=== PATIENT | male | born 1970 | race Caucasian/White ===

== ENCOUNTER 2021-11-09 22:40 | Inpatient (IN) | payer MEDICAID ==
[~2021-11-09] VITALS: Ht 175.3 cm; Wt 65.8 kg
[2021-11-10] MEDS ORDERED: ONDANSETRON 4MG ODT PO STA (01:28)
[2021-11-10] MEDS ORDERED: IBUPROFEN 600MG TABLET PO ONE (01:30)
[2021-11-10 02:00] LABS: CLARITY URINE CLEAR (CLEAR); COLOR URINE YELLOW (YELLOW); KETONES URINE 2+ (NEGATIVE); LEUKOCYTE ESTERASE URINE NEGATIVE (NEGATIVE); NITRITE URINE NEGATIVE (NEGATIVE); OCCULT BLOOD URINE NEGATIVE (NEGATIVE); PROTEIN URINE TRACE (NEGATIVE); SPECIFIC GRAVITY URINE 1.025 (1.005-1.030)
[2021-11-10 02:18] LABS: CHLORIDE 99 mEq/L (98-107)
[2021-11-10 02:23] LABS: BASOPHILS % 1.3 % (0.0-2.0); EOSINOPHILS % 2.1 % (0.0-5.0); LYMPHOCYTES % 12.3 % (20.0-50.0); MEAN CORPUSCULAR HEMOGLOBIN 18.5 pg (28.0-32.0); MEAN CORPUSCULAR VOLUME 65.1 fL (80.0-94.0); MEAN PLATELET VOLUME 7.6 fl (7.4-10.4); MONOCYTES % 11.5 % (2.0-8.0); NEUTROPHILS % 72.8 % (40.0-76.0); PLATELET 530 x1000/uL (130-400); RED CELL DISTRIBUTION WIDTH 23.5 % (11.6-14.6)
[2021-11-10 02:28] LABS: CREATINE KINASE 239 IU/L (39-308)
[2021-11-10 02:31] LABS: HEMATOCRIT. 20.2 % (42.0-52.0); HEMOGLOBIN. 5.7 g/dL (14.0-18.0)
[2021-11-10 02:32] LABS: PLATELET ESTIMATE INCREASED
[2021-11-10] MEDS ORDERED: PANTOPRAZOLE SODIUM 40 MG/VIAL IV ONE (03:00)
[2021-11-10] MEDS ORDERED: CALAMINE LOTION 120ML TOP ONE (04:30)
[2021-11-10] MEDS ORDERED: PANTOPRAZOLE SODIUM 40 MG/VIAL IV SCH (09:30)
[2021-11-10] MEDS ORDERED: ONDANSETRON HCL 4MG/2ML INJ IV PRN (09:30)
[2021-11-10] MEDS ORDERED: ACETAMINOPHEN 325MG TABLET PO PRN ×2 (09:30)
[2021-11-10] MEDS ORDERED: DIPHENHYDRAMINE 50MG/ML VIAL IV PRN (09:30)
[2021-11-10] MEDS ORDERED: SODIUM CHLORIDE 0.9% 1,000 ML IV SCH (09:30)
[2021-11-10 09:43] LABS: TOTAL IRON BINDING CAPACITY 434 ug/dL (250-450)
[2021-11-10 09:45] VITALS: BP 115/60
[2021-11-10 11:30] VITALS: BP 115/61
[2021-11-10 16:00] VITALS: BP 118/67
[2021-11-10] MEDS: IRON SUCROSE COMPLEX 100 MG/5 ML ML IV SCH (16:53)
[2021-11-10] MEDS: DEXT 5%/0.9% NACL 1,000 ML IV SCH (16:53)
[2021-11-10 19:56] LABS: HEMOGLOBIN 6.7 g/dL (14.0-18.0)
[2021-11-10 20:00] VITALS: BP 123/56
[2021-11-10] MEDS: PANTOPRAZOLE SODIUM 40 MG/VIAL IV SCH (21:41)
[2021-11-10 22:45] VITALS: BP 113/63
[2021-11-10 23:00] VITALS: BP 112/65
[2021-11-11] VITALS (13 sets, daily range): BP systolic 106–122; BP diastolic 53–83
[2021-11-11] MEDS ORDERED: PHENYLEPHRINE/SHK LV/MO/PET RECTAL OINTMENT 57GM PR SCH (01:00)
[2021-11-11] MEDS ORDERED: PHENYLEPH/PRAMOXIN/GLYCR/PET RECTAL CREAM 26GM PR SCH (01:40)
[2021-11-11] MEDS: DEXT 5%/0.9% NACL 1,000 ML IV SCH ×3 (01:52→21:38)
[2021-11-11 02:23] LABS: HEMATOCRIT 23.9 % (42.0-52.0); HEMOGLOBIN 7.3 g/dL (14.0-18.0)
[2021-11-11 07:44] LABS: EOSINOPHILS % 4.4 % (0.0-5.0); HEMATOCRIT. 24.8 % (42.0-52.0); HEMOGLOBIN. 7.7 g/dL (14.0-18.0); LYMPHOCYTES % 12.9 % (20.0-50.0); MEAN CORPUSCULAR HEMOGLOBIN 22.1 pg (28.0-32.0); MEAN PLATELET VOLUME 7.9 fl (7.4-10.4); MONOCYTES % 11.5 % (2.0-8.0); PLATELET 402 x1000/uL (130-400); RED BLOOD CELL COUNT 3.49 mill/uL (4.7-6.1); RED CELL DISTRIBUTION WIDTH 28.5 % (11.6-14.6)
[2021-11-11 07:47] LABS: INR 1.1; PROTHROMBIN TIME 11.3 sec (9.6-11.0)
[2021-11-11 07:56] LABS: CHLORIDE 109 mEq/L (98-107)
[2021-11-11] MEDS ORDERED: LIDOCAINE HCL/EPINEPHRINE 1%-EPI 1:100,000 20 ML VIAL ONE (08:20)
[2021-11-11] MEDS ORDERED: BUPIVACAINE HCL 0.5% (5MG/ML) 50ML ONE (08:21)
[2021-11-11] MEDS ORDERED: POLYMYXIN B SULFATE 500000 UNITS/VIAL ONE (08:35)
[2021-11-11 09:27] LABS: BASOPHILS % 1.2 % (0.0-2.0)
[2021-11-11] MEDS: PANTOPRAZOLE SODIUM 40 MG/VIAL IV SCH ×2 (09:30→21:27)
[2021-11-11] MEDS ORDERED: MIDAZOLAM HCL 2 MG/2 ML VIAL ONE (09:40)
[2021-11-11] MEDS ORDERED: FENTANYL CITRATE/PF 50MCG/ML 2ML VIAL ONE ×2 (09:40→09:49)
[2021-11-11] MEDS ORDERED: PROPOFOL 200MG/20ML VIAL IV ONE (09:43)
[2021-11-11] MEDS ORDERED: PROPOFOL 10MG/ML 100ML 100 ML IV ONE (09:48)
[2021-11-11] MEDS ORDERED: ONDANSETRON HCL 4MG/2ML INJ IV PRN (10:45)
[2021-11-11] MEDS ORDERED: FENTANYL CITRATE/PF 50MCG/ML 2ML VIAL IV PRN (10:45)
[2021-11-11] MEDS ORDERED: NALOXONE HCL 0.4MG/ML VIAL IV PRN (11:00)
[2021-11-11] MEDS ORDERED: POTASSIUM CHLORIDE 20MEQ TABLET SR PO NR (12:45)
[2021-11-11 16:21] LABS: HEMATOCRIT 23.5 % (42.0-52.0)
[2021-11-11] MEDS: IRON SUCROSE COMPLEX 100 MG/5 ML ML IV SCH (16:38)
[2021-11-12 00:51] LABS: HEMATOCRIT 26.5 % (42.0-52.0)
[2021-11-12 01:48] VITALS: BP 113/66
[2021-11-12 04:30] VITALS: BP 114/59
[2021-11-12 07:32] LABS: HEMOGLOBIN. 8.1 g/dL (14.0-18.0); MEAN CORPUSCULAR HEMOGLOBIN 22.9 pg (28.0-32.0); MEAN CORPUSCULAR VOLUME 73.9 fL (80.0-94.0); MEAN PLATELET VOLUME 8.2 fl (7.4-10.4); PLATELET 350 x1000/uL (130-400); RED BLOOD CELL COUNT 3.52 mill/uL (4.7-6.1); RED CELL DISTRIBUTION WIDTH 29.8 % (11.6-14.6)
[2021-11-12 07:47] LABS: CHLORIDE 107 mEq/L (98-107)
[2021-11-12 08:00] VITALS: BP 115/73
[2021-11-12] MEDS: DEXT 5%/0.9% NACL 1,000 ML IV SCH ×2 (08:13→17:55)
[2021-11-12] MEDS ORDERED: POTASSIUM CHLORIDE 20MEQ TABLET SR PO NR (08:30)
[2021-11-12] MEDS: PANTOPRAZOLE SODIUM 40 MG/VIAL IV SCH (08:31)
[2021-11-12 11:39] LABS: PLATELET ESTIMATE NORMAL
[2021-11-12 12:00] VITALS: BP 113/67
[2021-11-12 12:24] LABS: HEMOGLOBIN 8.7 g/dL (14.0-18.0)
[2021-11-12] MEDS: IRON SUCROSE COMPLEX 100 MG/5 ML ML IV SCH (15:55)
[2021-11-12 16:00] VITALS: BP_SYST 110; BP_SYST 117; BP_DIAS 62; BP_DIAS 71
[2021-11-12 16:28] VITALS: BP 117/71
== END 2021-11-12 17:59 | disposition home or self-care (01) | DRG 226 ==
LOC: ER 22:40 → 6EST 11-10 04:05 → ENRESERV 11-10 07:30
PROVIDERS: ADMIT Internal Medicine; ATTEND Internal Medicine
PROC: 30233N1 Transfusion of Nonautologous Red Blood Cells into Peripheral Vein, Percutaneous Approach (ICD-10-PCS; 2021-11-10)
PROC: 0DBP7ZZ Excision of Rectum, Via Natural or Artificial Opening (ICD-10-PCS; principal; 2021-11-11)
DX: K62.1 Rectal polyp (principal); E44.1 Mild protein-calorie malnutrition; D50.0 Iron deficiency anemia secondary to blood loss (chronic); R53.1 Weakness; Z20.822 Contact with and (suspected) exposure to COVID-19; L55.0 Sunburn of first degree; Z68.21 Body mass index [BMI] 21.0-21.9, adult
CPT/HCPCS: 36415; 71045; 80048; 80053; 81003; 82550; 82728; 83540; 83550; 85014; 85018; 85025; 85044; 86850; 86900; 86920; 87426; 88305; 88331; 93005; 99285; C9113; J2250; J2704; J3010; J3490; J7030; J7042; P9016; Q0162